=== PATIENT | male | born 2005 | race Caucasian/White ===

== ENCOUNTER 2023-04-11 10:30 | Observation (INO) | payer BC, SELFPAY ==
--- NOTE | ~2023-04-11 | CT_ITS ---
EXAMINATION: CT abdomen pelvis w con DATE: 04/11/2023 15:51 INDICATION: Left upper quadrant abdominal pain TECHNIQUE: Computed tomography (CT) of the abdomen and pelvis was performed with 100 mL Omnipaque-350 intravenous contrast. Automated exposure control and iterative reconstruction technique were employe d. The dose-length product was 413.95 mGy-cm. COMPARISON: None FINDINGS: Lung bases are clear. Heart size is normal. No pericardial or pleural effusion. Small amount of bubbl y fluid in the distal esophagus. Liver, gallbladder, pancreas, bilateral adrenal glands and kidneys a re normal. Splenomegaly measuring 16.1 cm in craniocaudal length. Bowels including the appendix are n ormal. Bladder is normal. Nonspecific small amount of free fluid in the deep pelvis. No abscess or fr ee intraperitoneal gas. No pathologically enlarged abdominal or pelvic lymphadenopathy. Mild lumbar l evocurvature. Mild lumbar and lower thoracic spondylosis. Likely chronic mild anterior wedging at T10 -T12. IMPRESSION: 1. Nonspecific splenomegaly and small amount of ascites in the deep pelvis. Reviewed, dictated and finalized at location A.
[2023-04-11 11:41] LABS: Basophils Absolute Auto 0.1 K/mm3 (0.0-0.1); Basophils Percent Auto 0.6 % (0.2-1.2); Eosinophils Percent Auto 0.3 % (0-4.4); Hematocrit 49.2 % (42.0-52.0); Hemoglobin 16.1 g/dL (14.0-18.0); Immature Granulocyte Absolute 0.02 K/mm3 (0.00-0.031); Immature Granulocyte Percent A 0.2 % (0-0.5); Lymphocytes Absolute Auto 3.44 K/mm3 (0.9-3.2); Lymphocytes Percent Auto 36.9 % (18.3-44.2); Mean Corpuscular HGB Conc 32.7 g/dl (32-36); Mean Corpuscular Hemoglobin 31.4 pg (26-34); Mean Corpuscular Volume 95.9 fl (80-100); Mean Platelet Volume 9.5 fl (7.4-10.4); Monocytes Absolute Auto 0.5 K/mm3 (0.1-0.6); Monocytes Percent Auto 5.8 % (2.6-8.5); Neutrophils Absolute Auto 5.2 K/mm3 (1.3-6.7); Neutrophils Percent Auto 56.2 % (45.5-73.1); Platelet Count Result 217 k/mm3 (150-375); Red Blood Count 5.13 M/mm3 (4.6-6.20); Red Cell Distribution Width 12.7 % (11.5-14.5); White Blood Count 9.3 K/mm3 (4.5-10.0)
[2023-04-11 11:47] VITALS: BP 135/82; PULSE 96; RESP 14; TEMP 36.5; O2SAT 100
[2023-04-11 11:50] LABS: Alanine Aminotransferase 67 U/L (6-50); Albumin Level 4.8 g/dL (3.5-5.1); Alkaline Phosphatase 99 U/L (38-126); Anion Gap 8 mmol/L (8-16); Aspartate Amino Transferase 47 U/L (17-59); Bilirubin,Total 0.6 mg/dL (0.2-1.3); Blood Urea Nitrogen 18 mg/dL (9-20); Calcium 9.5 mg/dL (8.4-10.2); Carbon Dioxide 32 mmol/L (22-30); Chloride 103 mmol/L (98-107); Estimated Glomerular Filt Rate > 60; Glucose 91 mg/dL (65-110); Lipase 85 U/L (23-300); Potassium 4.1 mmol/L (3.4-5.0); Sodium 143 mmol/L (137-145)
[2023-04-11 12:08] LABS: Appearance Urine Clear (Clear); Bilirubin Urine Negative (Negative); Blood Urine Negative (Negative); Color Urine Yellow (Yellow); Glucose Urine UA Negative (Negative); Ketones Urine Negative (Negative); Leukocyte Esterase Ur Negative LEU/UL (Negative); Nitrate Urine Negative (Negative); Protein Urine Negative (Negative); Specific Grav Ur 1.023 (1.001-1.035); Urobilinogen Urine 0.2 mg/dL (<2.0); pH Urine 6.5 (5.0-9.0)
[2023-04-11 12:09] LABS: Add Urine Microscopic? NO
--- NOTE | 2023-04-11 13:24 | PC.NURSE ---
Pt to ED stating while he was lifting weights he felt a pop left upper abd, causing N/V[facility] sent pt to rule out spleen rupture
--- NOTE | 2023-04-11 15:05 | ED.ABDPAIN ---
HPI - Abdominal Pain General Chief Complaint: Abdominal Pain Stated Complaint: left upper abdominal pain - recov. from MONO Time Seen by Provider: 04/11/23 14:07 History of Present Illness HPI narrative: Gino Peralta is a 18 y/o male with PMHx of being diagnosed with mono about 3 weeks ago. He states that he was released to return to strenuous activity 5 days ago. 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 He was able to eat a little after but it didn't make him feel any better or worse. He reports that he called his [facility] and they told him to go to the ER. Related Data Allergies Allergy/AdvReac Type Severity Reaction Status Date / Time No Known Allergies Allergy Verified 04/11/23 10:31 Review of Systems Review of Systems: CONSTITUTIONAL: Denies fever, chills, or sweats. EYES: Denies visual changes, redness, or discharge. ENT: Denies rhinorrhea, congestion, sore throat, or otalgia. CARDIOVASCULAR: Denies chest pain, palpitations, or edema. RESPIRATORY: Denies cough or dyspnea. GASTROINTESTINAL: Reports left upper abdominal pain with nausea and vomiting. GENITOURINARY: Denies dysuria or hematuria. SKIN: Denies rash or itching. MUSCULOSKELETAL: Denies back pain, joint pain, or myalgia. NEUROLOGIC: Denies headache, numbness, dizziness, or weakness. PSYCHIATRIC: Denies anxiety or depression. Exam Narrative: GENERAL: Well-appearing, well-nourished, and in no acute distress. HEAD: Normocephalic, atraumatic. EYES: PERRLA and EOMI. ENT: Nares clear, no rhinorrhea or epistaxis. Mucous membranes moist. Oropharynx without tonsillar hypertrophy exudate or other lesions. NECK: Supple. No adenopathy or masses. No carotid bruits or JVD CHEST: Clear to auscultation. No respiratory distress. No wheezes rales or rhonchi HEART: Regular rate and rhythm. No murmur heard. Normal peripheral pulses. ABDOMEN: Soft, nondistended, normal active bowel sounds, pain to the left upper abdomen EXTREMITIES: Normal range of motion. No edema. SKIN: Warm, dry, no rash. NEURO: No focal deficits. Alert and oriented x3. PSYCH: Normal mood and affect. Course Vital Signs Vital signs: Vital Signs Temperature 36.5 C 04/11/23 11:47 Pulse Rate 96 04/11/23 11:47 Respiratory Rate 14 04/11/23 11:47 Blood Pressure 135/82 04/11/23 11:47 Pulse Oximetry 100 04/11/23 11:47 Oxygen Delivery Room Air 04/11/23 11:47 Temperature 36.4 C 04/11/23 16:16 Pulse Rate 77 04/11/23 16:16 Respiratory Rate 18 04/11/23 16:16 Blood Pressure 129/62 04/11/23 16:16 Pulse Oximetry 100 04/11/23 16:16 Oxygen Delivery Room Air 04/11/23 11:47 Vitals reviewed by me. MDM - Abdominal Pain MDM Narrative Medical decision making narrative: On exam pt is calm, he reports that he feels about the same as he did when he got here. He had severe left upper quadrant pain while working out and he was concerned about his spleen with his recent Traill infection Patient reports of nausea/vomiting with the episode of pain but was able to keep down food after the episode Reports of slight nausea here Labs are stable, CT is evident of splenomegaly with some questionable ascites fluid? Collaborated with my attending Dr. You who recommends talking with the radiologist and explaining the presenting history and then talk with general surgery The radiologist does not believe that there is a tear/ partial rupture or injury to the spleen Talked with General surgery and he too feels that pt should be ok, but keeping pt in Observation over night with serial h and H checks and abdominal exams is understandable to ensure pt is doing well Talked with Hospitalist Edie who accepts pt as an Observation admission Updated pt on plan and
[2023-04-11] MEDS: SODIUM CHLORIDE 0.9% IV 1,000 ML 999 ML IV CONT (15:14)
[2023-04-11] MEDS: ONDANSETRON INJ 4 MG/2 ML VIAL IV PUSH (15:15)
[2023-04-11 16:16] VITALS: BP 129/62; PULSE 77; RESP 18; TEMP 36.4; O2SAT 100
--- NOTE | 2023-04-11 16:18 | PC.NURSE ---
Pt states nausea improved.
--- NOTE | 2023-04-11 20:11 | PM.IMHP ---
H&P: HPI History of Present Illness Date/Time: 04/11/23 17:45 Chief Complaint: Left upper abdominal pain. Narrative: This is a very pleasant and healthy 18-year-old male who is currently recovering from mononucleosis who presented to the emergency department via private vehicle for evaluation of left upper abdominal pain. The patient provides the following history. He was diagnosed with mono 3 weeks ago and was released to return to normal activities 5 days ago. 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 Last he returned to workouts and today while doing weights and core training, he developed sudden stabbing pain in the left upper quadrant associated with nausea, sweats, and lightheadedness. He had dry heaves for a good 5 minutes but never vomited. The pain does not radiate. It is worse with palpation. He has not noticed any significant alleviating factors. At is worst he rates the pain 7/10, currently 3/10 without intervention. Vital signs were stable on arrival to the ED. CMP and CBC were relatively unremarkable with the only outlier being an ALT of 67 which is only mildly elevated. Urinalysis was unremarkable. CT of the abdomen and pelvis showed nonspecific splenomegaly and a small amount of ascites in the pelvis. ED provider discussed this case with the on-call surgeon who recommends keeping the patient overnight for close monitoring and serial abdominal exams. Case was also discussed with the radiologist who did not see findings concerning for splenic laceration. Review of Systems Review of Systems: Twelve systems were reviewed and are negative except for as per HPI. [facility] Past Medical History Medical History Mononucleosis (03/2023) Family History Family History (Updated 04/11/23 @ 20:19 by Edie Upton PA-C) Other Family history non-contributory Social History Social History (Updated 04/11/23 @ 20:20 by Edie Upton PA-C) Social History: Surrogate medical decision maker: Raymond Peralta, father. Code status: Full code. Smoking status: Never smoker Alcohol intake: never Substance use: never Additional living arrangements comments: From [place]. 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 Meds Home Medications and Allergies Allergies Allergy/AdvReac Type Severity Reaction Status Date / Time No Known Allergies Allergy Verified 04/11/23 10:31 Vital Signs Vital Signs - 24 hr 04/11/23 11:47 04/11/23 16:16 Temperature 97.7 F 97.6 F Pulse Rate 96 77 Respiratory Rate 14 18 Blood Pressure 135/82 129/62 Pulse Oximetry 100 100 Oxygen Delivery Room Air Exam Narrative: General: Well-developed, nontoxic-appearing male supine in bed in no acute distress. Weight: 84 kg. BMI: 23.8. HEENT: PERRL, EOMI. Sclera anicteric. Oral mucosa moist. Neck: Supple. Respiratory: Lungs are clear to auscultation bilaterally. Cardiovascular: Regular rate and rhythm with S1-S2. Gastrointestinal: Abdomen is soft and nondistended with positive bowel sounds. He is tender to deeper palpation the left upper quadrant. Spleen is not feel significantly enlarged. No guarding or rebound tenderness. No bruising noted. Skin: Warm and dry. Extremities: No cyanosis, clubbing, or edema. Radial and pedal pulses intact. Neurological: Alert. Cranial nerves 2-12 are grossly intact. No gross focal deficits to casual conversation. Psychiatric: Pleasant and cooperative with normal mood and affect. Judgment and insight intact. H&P: Results Labs Labs: Short CBC 04/11/23 Range/Units 11:31 WBC 9.3 (4.5-10.0) K/mm3 Hgb 16.1 (14.0-18.0) g/dL Hct 49.2 (42.0-52.0) % Plt Count 217 (150-375) k/mm3 [facility] 04/11/23 11:31 Sodium 143 Potassium 4.1 Chloride 103 Carbon Dioxide 32 H BUN 18 Creatinine 1.00 Glucose 91 Calcium 9.5 Liver Fun
--- NOTE | 2023-04-11 21:31 | ADMGEN ---
This patient, Gino Peralta, was admitted to [address] [place] [address] Room 314-02. Patient/family oriented to hospital policies and general routines including ID bracelet, bed and alarms, visiting hours, pain management, procedures, bathroom and other care routines, personal items, smoking policy, room service/diet, and visiting hours. Information on how to activate the Rapid Response Team has been discussed. Patient/Family are encouraged to report perceived risks to care and to ask questions if they do not understand what they are told or what they should do.
[2023-04-11 22:00] VITALS: BP 143/69; PULSE 85; RESP 18; TEMP 36.6; O2SAT 100
[2023-04-12 00:31] LABS: Hematocrit 44.7 % (42.0-52.0)
[2023-04-12 06:00] VITALS: BP 122/62; PULSE 61; RESP 18; TEMP 36.6; O2SAT 99
[2023-04-12 06:20] LABS: Basophils Percent Auto 0.6 % (0.2-1.2); Eosinophils Absolute Auto 0.1 K/mm3 (0-0.3); Eosinophils Percent Auto 1.5 % (0-4.4); Hematocrit 46.6 % (42.0-52.0); Hemoglobin 15.1 g/dL (14.0-18.0); Immature Granulocyte Absolute 0.01 K/mm3 (0.00-0.031); Immature Granulocyte Percent A 0.2 % (0-0.5); Lymphocytes Absolute Auto 3.88 K/mm3 (0.9-3.2); Lymphocytes Percent Auto 59.4 % (18.3-44.2); Mean Corpuscular HGB Conc 32.4 g/dl (32-36); Mean Corpuscular Hemoglobin 30.8 pg (26-34); Mean Corpuscular Volume 95.1 fl (80-100); Mean Platelet Volume 9.6 fl (7.4-10.4); Monocytes Absolute Auto 0.6 K/mm3 (0.1-0.6); Monocytes Percent Auto 9.3 % (2.6-8.5); Neutrophils Absolute Auto 1.9 K/mm3 (1.3-6.7); Platelet Count Result 207 k/mm3 (150-375); White Blood Count 6.5 K/mm3 (4.5-10.0)
[2023-04-12 06:30] LABS: Alanine Aminotransferase 57 U/L (6-50); Albumin Level 3.8 g/dL (3.5-5.1); Alkaline Phosphatase 94 U/L (38-126); Anion Gap 8 mmol/L (8-16); Aspartate Amino Transferase 37 U/L (17-59); Bilirubin,Total 0.7 mg/dL (0.2-1.3); Blood Urea Nitrogen 17 mg/dL (9-20); Calcium 8.8 mg/dL (8.4-10.2); Carbon Dioxide 26 mmol/L (22-30); Chloride 105 mmol/L (98-107); Estimated CRCL calculation 111 ml/min; Estimated Glomerular Filt Rate > 60; Glucose 99 mg/dL (65-110); Potassium 3.9 mmol/L (3.4-5.0); Sodium 139 mmol/L (137-145)
[2023-04-12 09:48] VITALS: O2SAT 99
--- NOTE | 2023-04-12 12:44 | PM.CNGS ---
Assessment and Plan Assessment and plan (1) Splenomegaly: Code(s): R16.1 - Splenomegaly, not elsewhere classified Status: Acute Assessment and Plan: Patient with a history of mononucleosis about 5-6 weeks ago who presented with LUQ abdominal pain during weight lifting. CT showed splenomegaly with small amount of pelvic ascites but no obvious rupture or infarct. He was monitored overnight. He is hemodynamically stable and his hemoglobin remains stable. His abdominal pain has improved. No indication for any surgical intervention. Would recommend follow-up with PCP and that he avoid any sports, weight lifting, or strenuous activity until he is seen by his PCP. Okay to discharge from our standpoint. No follow-up with surgery needed. (2) History of mononucleosis: Code(s): Z86.19 - Personal history of other infectious and parasitic diseases Status: Acute (3) Abdominal pain, acute, left upper quadrant: Code(s): R10.12 - Left upper quadrant pain Status: Acute Plan I have discussed the patient's case and plan of care with Dr. Rosa. History of Present Illness Consult details Consult date: 04/12/23 Reason for consult: other (Splenomegaly, left upper quadrant abdominal pain) Requesting physician: Nara Wilcox APRN Narrative: This is a 18-year-old man who presented to the ER yesterday with complaints of left upper quadrant abdominal pain. He was diagnosed with mononucleosis at the end of February, about 5-6 weeks ago. 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 He reports being released for sports and weightlifting last Monday. He then returned to activity on . Yesterday, he was lifting weights and during a lifting set he had a sudden onset of left upper quadrant abdominal pain. He states it felt like a muscle strain. He continued working out and the pain persisted, but seemed to improve some. Later in the workout, he got diaphoretic and nauseous and stopped his workout. He called the clinic on campus, who directed him to the ER. Labs were unremarkable with a hemoglobin of 16.1. CT scan of the abdomen and pelvis showed nonspecific splenomegaly measuring 16.1 cm and a small amount of ascites in the deep pelvis. No obvious splenic rupture or infarct noted on CT. The patient was admitted for observation overnight. Labs were repeated this morning and hemoglobin remained stable at 15. Our service has been consulted for the splenomegaly with abdominal pain. He reports his left upper quadrant abdominal pain has improved significantly. He is tolerating a diet and no other complaints at this time. Review of Systems Review of Systems: All systems reviewed & are unremarkable except as noted in HPI and below PMFSH Past Medical History Medical History Mononucleosis (03/2023) Family History Family History (Updated 04/11/23 @ 20:19 by Edie Upton PA-C) Other Family history non-contributory Social History Social History Social History: Surrogate medical decision maker: Raymond Peralta, father. Code status: Full code. Smoking status: Never smoker Second hand tobacco smoke exposure: No Alcohol intake: never Substance use: never Lack of Transportation: No Lack of Food: Never True Current Housing: I Have Housing Concerned About Future Housing: No Difficulty Paying Gas/Electric Bills: No Difficulty Paying for Meds: No Currently Unemployed: No Education: High School Diploma/GED Difficulty w/ Childcare or Family Care: No Additional living arrangements comments: From [place]. 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 Spiritual care concerns: No Meds Home Medications and Allergies Home Medications Medication Instructions Recorded Confirmed Type No Home Medications 04/12/23 04/12/23 H
--- NOTE | 2023-04-12 13:03 | PM.DS ---
DS: Admitting Diagnosis Discharge Date 04/12/2023 Admitting Diagnosis acute abdominal pain in left upper quadrant, splenomegaly, history of mononucleosis DS: Discharge Diagnosis Discharge Diagnosis (1) Acute abdominal pain in left upper quadrant: Code(s): R10.12 - Left upper quadrant pain Status: Acute (2) Splenomegaly: Code(s): R16.1 - Splenomegaly, not elsewhere classified Status: Acute (3) History of mononucleosis: Code(s): Z86.19 - Personal history of other infectious and parasitic diseases Status: Acute DS: Summary Hospital Course Reason for hospitalization: patient was admitted due to acute onset left upper quadrant abdominal pain while working out after recent diagnosis mononucleosis and CT imaging findings concerning for splenomegaly with some pelvic free fluid Hospital Course: patient was admitted for observation repeat abdominal exams which were benign. surgical consult was obtained and no further interventions were necessary. Repeat serial abdominal exams were negative and patient's symptoms were improved with conservative care. Patient discharged with instructions to stay out of sports until cleared by primary care. Status at Discharge Cognitive/behavioral status at discharge: Awake, alert, oriented and pleasant Functional status at discharge: independent ambulation Overall status at discharge: patient is back to baseline Time Spent with Patient Time attestation: Total time spent providing and/or coordinating discharge services: 25 Time spent: Less than 30 minutes Exam Narrative: General: Well-developed, nontoxic-appearing male supine in bed in no acute distress. Weight: 84 kg. BMI: 23.8. HEENT: PERRL, EOMI. Sclera anicteric. Oral mucosa moist. Neck: Supple. Respiratory: Lungs are clear to auscultation bilaterally. Cardiovascular: Regular rate and rhythm with S1-S2. Gastrointestinal: Abdomen is soft and nondistended with positive bowel sounds. He is tender to deeper palpation the left upper quadrant. Spleen is not feel significantly enlarged. No guarding or rebound tenderness. No bruising noted. Skin: Warm and dry. Extremities: No cyanosis, clubbing, or edema. Radial and pedal pulses intact. Neurological: Alert. Cranial nerves 2-12 are grossly intact. No gross focal deficits to casual conversation. Psychiatric: Pleasant and cooperative with normal mood and affect. Judgment and insight intact. DS: Data Data Completed and Pending Completed studies during hospitalization: CT scan abdomen pelvis Labs on day of discharge: Labs from last 24 hours 04/12/23 04/12/23 06:04 00:24 WBC 6.5 RBC 4.90 Hgb 15.1 15.0 Hct 46.6 44.7 MCV 95.1 MCH 30.8 MCHC 32.4 RDW 13.0 Plt Count 207 MPV 9.6 Immature Gran % (Auto) 0.2 Neut % (Auto) 29.0 L Lymph % (Auto) 59.4 H Galax % (Auto) 9.3 H Eos % (Auto) 1.5 Baso % (Auto) 0.6 Lymph # (Auto) 3.88 H Galax # (Auto) 0.6 Eos # (Auto) 0.1 Baso # (Auto) 0.0 Abs Immat Gran (auto) 0.01 Absolute Neuts (auto) 1.9 Absolute Nucleated RBC 0.0 Nucleated RBC % 0.0 Sodium 139 Potassium 3.9 Chloride 105 Carbon Dioxide 26 Anion Gap 8 BUN 17 Creatinine 1.10 Estim Creat Clear Calc 111 Estimated GFR > 60 Glucose 99 Calcium 8.8 Total Bilirubin 0.7 AST 37 ALT 57 H Alkaline Phosphatase 94 Total Protein 7.0 Albumin 3.8 Discharge Plan Discharge Attending physician on discharge: Armando Lyman Consulting providers: Harish Rosa; Abdirashid Saunders; Jian Prince; Edie Upton; Belia Farooq Discharging Clinician: Abdirashid Saunders Anticipated Discharge Date/Time: 04/12/23 15:00 Patient Disposition: Home, Self-Care Activity: other - see discharge instructions Diet: regular Discharge Instructions: Follow-up with primary care physician. No sports, strenuous activity, or weight lifting until you are seen
[2023-04-12 13:27] LABS: Hematocrit 49.2 % (42.0-52.0); Hemoglobin 15.9 g/dL (14.0-18.0)
== END 2023-04-12 13:52 | disposition home or self-care (01) ==
LOC: ANHED 19:17 → ANH3MEDSUR 21:30
PROVIDERS: Physician Assistant; Preventive Medicine Aerospace Medicine; Admitting Provider Hospitalist; Emergency Provider Nurse Practitioner Family; Visit Provider Hospitalist
DX: R16.1 Splenomegaly, not elsewhere classified (principal); R18.8 Other ascites; Z86.19 Personal history of other infectious and parasitic diseases
CPT/HCPCS: 36415; 74177; 80053; 81003; 83690; 85014; 85018; 85025; 96361; 96374; 99285; G0378; J2405; J7030; Q9967

== ENCOUNTER 2023-04-28 08:43 | Outpatient (CLI) | payer BC, SELFPAY ==
--- NOTE | ~2023-04-28 | US_ITS ---
Limited Abdominal Sonogram: Real-time sonographic imaging of the left upper quadrant was performed. Clinical History: Infectious mononucleosis COMPARISON: CT scan dated 04/11/2023 Findings: Spleen measures 12.2 x 5.0 x 4.8 cm in size. No focal mass evident. No ascites seen in the left upper quadrant.. Impression: Splenomegaly appears to be decrease in size as compared to prior CT scan, though this is possibly par tly due to plane of imaging. Reviewed, dictated and finalized at location M. Impression: Splenomegaly appears to be decrease in size as compared to prior CT scan, fany emerson this is possibly partly due to plane of imaging.
== END 2023-04-28 08:44 ==
PROVIDERS: PCP Family Medicine; Visit Provider Family Medicine
DX: B27.99 Infectious mononucleosis, unspecified with other complication (principal)
CPT/HCPCS: 76705

== ENCOUNTER 2023-06-21 12:57 | Outpatient (CLI) | payer BC, SELFPAY ==
--- NOTE | ~2023-06-21 | US_ITS ---
Testicular ultrasound with doppler. Indication: Left varicocele. Technique: Real-time sonography the scrotum was performed. Color flow Doppler and Doppler spectral an alysis were performed. Findings: The testes are homogeneous in echotexture bilaterally. There is no evidence of an intrates ticular mass. The right testis measures 5.7 x 2.3 x 3.1 cm and the left 5.5 x 2.5 x 3.5 cm. There is color-flow seen to both testes. Arterial and venous spectral waveforms are seen in both testes. There is no sonographic evidence of torsion. The head of the epididymis is visualized bilaterally and is within normal limits. Left-sided varicocele present. Impression: Left-sided varicocele. Reviewed, dictated and finalized at [facility]. REVIEWER Impression: Left-sided varicocele.
== END 2023-06-21 12:58 ==
PROVIDERS: PCP Urology; Visit Provider Urology
DX: I86.1 Scrotal varices (principal)
CPT/HCPCS: 76870; 93976

== ENCOUNTER 2023-09-14 19:32 | Emergency (ER) | payer BC, SELFPAY ==
--- NOTE | ~2023-09-14 | XR_ITS ---
EXAMINATION: XR hip RT min 2V DATE: 09/14/2023 20:27 INDICATION: Right hip pain. Injury. TECHNIQUE: 2 views of right hip were obtained. COMPARISON: None. FINDINGS: Bone alignment is normal. No fracture. There is decreased femoral head/neck offset, which m ay be seen with femoral acetabular impingement. Right hip joint space is normal. IMPRESSION: 1. No fracture. Reviewed, dictated and finalized at location E. RVISOR BRINE IMPRESSION: 1. No fracture.
[2023-09-14 20:03] VITALS: BP 145/78; PULSE 96; RESP 16; TEMP 36.7; O2SAT 100
--- NOTE | 2023-09-14 23:37 | ED.GENADULT ---
HPI - General Adult General Chief complaint: Fall Stated complaint: right hip pain Time Seen by Provider: 09/14/23 23:00 History of Present Illness HPI narrative: Patient 18-year-old gentleman who presents emergency department with chief complaint of right hip pain. The patient reports that he was at a baseball game and was struck in the right hip area the patient reports that the pain is worse with movement and improved with rest patient reports that he had no loss of conscious denies saddle anesthesia denies bowel or bladder incontinence. Related Data Allergies Allergy/AdvReac Type Severity Reaction Status Date / Time No Known Allergies Allergy Verified 04/11/23 10:31 Review of Systems Review of Systems: A 10 system review of systems was completed on the patient and is negative except for what is stated in the HPI. Nursing and ancillary documentation was reviewed. [facility] Past Medical History Medical History Mononucleosis (03/2023) Family History Family History Other Family history non-contributory Social History Social History Social History: Surrogate medical decision maker: Raymond Peralta, father. Code status: Full code. Smoking status: Never smoker Second hand tobacco smoke exposure: No Alcohol intake: never Substance use: never Lack of Transportation: No Lack of Food: Never True Current Housing: I Have Housing Concerned About Future Housing: No Difficulty Paying Gas/Electric Bills: No Difficulty Paying for Meds: No Currently Unemployed: No Education: High School Diploma/GED Difficulty w/ Childcare or Family Care: No Additional living arrangements comments: From [place]. 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 Spiritual care concerns: No Exam Narrative: GENERAL: Well-appearing, well-nourished, and in no acute distress. HEAD: Normocephalic, atraumatic. EYES: PERRLA and EOMI. ENT: Nares clear, no rhinorrhea or epistaxis. Mucous membranes moist. NECK: Supple. CHEST: Clear to auscultation. No respiratory distress. HEART: Regular rate and rhythm. No murmur heard. Normal peripheral pulses. ABDOMEN: Soft, nontender, nondistended, normal active bowel sounds. EXTREMITIES: Normal range of motion tenderness to palpation in the right iliac crest area. No edema. SKIN: Warm, dry, no rash. NEURO: No focal deficits. Alert and oriented x3. PSYCH: Normal mood and affect. Course Vital Signs Vital signs: Vital Signs Temperature 36.7 C 09/14/23 20:03 Pulse Rate 96 09/14/23 20:03 Respiratory Rate 16 09/14/23 20:03 Blood Pressure 145/78 H 09/14/23 20:03 Pulse Oximetry 100 09/14/23 20:03 Oxygen Delivery Room Air 09/14/23 20:03 Temperature 36.7 C 09/14/23 20:03 Pulse Rate 96 09/14/23 20:03 Respiratory Rate 16 09/14/23 20:03 Blood Pressure 145/78 H 09/14/23 20:03 Pulse Oximetry 100 09/14/23 20:03 Oxygen Delivery Room Air 09/14/23 20:03 Medical Decision Making [facility] Narrative Medical decision making narrative: Differential diagnosis includes fracture, contusion Plain film x-rays of the right hip showed no evidence of fracture of both the proximal femur or the pelvis Patient will be treated with anti-inflammatories and will be discharged home with a prescription for diclofenac and Flexeril. Vital Signs Vital Signs: Vital Signs Temperature 36.7 C 09/14/23 20:03 Pulse Rate 96 09/14/23 20:03 Respiratory Rate 16 09/14/23 20:03 Blood Pressure 145/78 H 09/14/23 20:03 Pulse Oximetry 100 09/14/23 20:03 Oxygen Delivery Room Air 09/14/23 20:03 Temperature 36.7 C 09/14/23 20:03 Pulse Rate 96 09/14/23 20:03 Respiratory Rate 16 09/14/23 20:03 Blood Pressure 145/78 H 09/14/23
[2023-09-14] MEDS: KETOROLAC 30 MG/ML VIAL (*BKC) IM (23:54)
[2023-09-15 00:10] VITALS: RESP 17
== END 2023-09-15 00:10 | disposition home or self-care (01) ==
PROVIDERS: Emergency Provider Emergency Medicine; PCP Urology
DX: S70.01XA Contusion of right hip, initial encounter (principal); W03.XXXA Other fall on same level due to collision with another person, initial encounter; Y93.64 Activity, baseball
CPT/HCPCS: 73502; 96372; 99283; J1885